=== PATIENT | female | born 1980 | race African-American/Black ===

== ENCOUNTER → 2018-02-09 | Outpatient (CLI) | payer OTHER ==
[~2018-02-09] MED LIST: CHLORPROMAZINE100 MG PO; IBUPROFEN 800800 MG PO; NORTHERA300 MG PO; PRAZOSIN 1 MG CA1 M1 PO; TRAMADOL 50 MG50 MG PO; TRAZODONE HCL100 MG PO; TRILEPTAL150 MG PO
== END | disposition home or self-care (01) ==
LOC: CAT 08:42
DX: I71.03 Dissection of thoracoabdominal aorta (principal); Z90.49 Acquired absence of other specified parts of digestive tract; Z88.8 Allergy status to other drugs, medicaments and biological substances

== ENCOUNTER → 2018-02-18 | Outpatient (CLI) | payer OTHER | LOC: CAT 09:14 | DX: Z53.9 Procedure and treatment not carried out, unspecified reason (principal) ==

== ENCOUNTER 2018-09-04 12:48 | Emergency (ER) | payer OTHER ==
[~2018-09-04] VITALS: Ht 175.3 cm; Wt 90.7 kg
[2018-09-04 14:20] LABS: ABSOLUTE NEUTROPHILS 4.5 thou/uL (1.4-8.2); BASOPHILS 0.5 % (0.0-2.0); EOSINOPHILS 0.9 % (0.0-3.0); HEMATOCRIT 41.7 % (37.0-47.0); HEMOGLOBIN 13.8 gm/dL (12.0-15.0); MCH 29.3 pg (26.0-34.0); MCHC 33.2 g/dL (28.0-37.0); MCV 88.1 fL (80.0-100.0); MONOCYTES 6.9 % (1.0-8.0); PLATELET COUNT 183 thou/uL (150-400); POLYS 67.7 % (36.0-66.0); RBC 4.73 mil/uL (4.20-5.00); RDW 13.8 % (10.5-14.5); WBC 6.6 thou/uL (4.0-11.0)
[2018-09-04 14:35] LABS: CALCIUM 9.4 mg/dL (8.5-10.1); CREATININE 0.9 mg/dL (0.6-1.0); POTASSIUM 3.4 mmol/L (3.5-5.1)
[2018-09-04 14:42] LABS: TOTAL BILIRUBIN 0.5 mg/dL (<0.1-1.0); TOTAL PROTEIN 7.8 g/dL (6.4-8.2)
[2018-09-04] MEDS ORDERED: NORCO 5-325 TA1 EAC1 PO (14:45)
[2018-09-04] MEDS ORDERED: PRILOSEC OTC20 MG PO (14:45)
[2018-09-04] MEDS ORDERED: ONDANSETRON ODT8 MG PO (14:45)
[2018-09-04 16:20] LABS: URINE BILIRUBIN NEGATIVE (Negative); URINE BLOOD TRACE (Negative); URINE CLARITY SL CLOUDY; URINE COLOR YELLOW; URINE GLUCOSE-RANDOM* NEGATIVE (Negative); URINE KETONES NEGATIVE (Negative); URINE LEUKOCYTES-REFLEX NEGATIVE (Negative); URINE NITRITE-REFLEX NEGATIVE (Negative); URINE PROTEIN (DIPSTICK) TRACE (Negative); URINE UROBILINOGEN 0.2 E.U./dl (0.2-1.0)
[2018-09-04 16:33] VITALS: BP 106/68
== END 2018-09-04 16:34 | disposition home or self-care (01) ==
LOC: ER 12:48
PROVIDERS: Emergency Medicine
DX: R10.11 Right upper quadrant pain (principal); R11.2 Nausea with vomiting, unspecified; Z88.8 Allergy status to other drugs, medicaments and biological substances

== ENCOUNTER 2018-11-23 10:23 | Emergency (ER) | payer OTHER ==
[~2018-11-23] VITALS: Ht 154.9 cm; Wt 87.5 kg
[~2018-11-23 10:23] MED LIST changes: +NORCO 5-325 TA1 EAC1 PO; +ONDANSETRON ODT8 MG PO; +PRILOSEC OTC20 MG PO
[2018-11-23] MEDS ORDERED: BRINTELLIX10 MG PO ×2 (10:35)
[2018-11-23] MEDS ORDERED: NEURONTIN600 MG PO (10:35)
[2018-11-23] MEDS ORDERED: AMITRIPTYLINE H10 M3 PO (10:35)
[2018-11-23 11:55] LABS: ABSOLUTE NEUTROPHILS 3.4 thou/uL (1.4-8.2); HEMATOCRIT 35.6 % (37.0-47.0); HEMOGLOBIN 11.9 gm/dL (12.0-15.0); LYMPHOCYTES 31.6 % (24.0-44.0); MCH 30.1 pg (26.0-34.0); MCHC 33.6 g/dL (28.0-37.0); MCV 89.7 fL (80.0-100.0); MONOCYTES 7.1 % (1.0-8.0); PLATELET COUNT 202 thou/uL (150-400); POLYS 59.3 % (36.0-66.0); RBC 3.97 mil/uL (4.20-5.00); RDW 14.4 % (10.5-14.5); WBC 5.8 thou/uL (4.0-11.0)
[2018-11-23 12:01] LABS: ANION GAP 9 mmol/L (7-16); BUN 10 mg/dL (7-18); CHLORIDE 105 mmol/L (98-107); CO2 26 mmol/L (21-32); CREATININE 0.9 mg/dL (0.6-1.0); GLUCOSE 95 mg/dL (74-106); POTASSIUM 4.6 mmol/L (3.5-5.1); SODIUM 140 mmol/L (136-145)
[2018-11-23 12:11] LABS: ALBUMIN 3.5 g/dL (3.4-5.0); SGOT 21 U/L (15-37); SGPT 13 U/L (30-65); TOTAL BILIRUBIN 0.4 mg/dL (<0.1-1.0); TOTAL PROTEIN 6.7 g/dL (6.4-8.2); TROPONIN-I <0.06 ng/mL (<0.06)
[2018-11-23 14:49] VITALS: BP 98/58
--- NOTE | 2018-11-24 14:06 | EKG ---
[address] [address] ELECTROCARDIOGRAM REPORT Name: MARIE ROGERS Room #: DEP [facility]#: [id number] Admission: 11/23/18 Attend Phys: Discharge: 11/23/18 Date of : 84 Report #: [id number] THIS REPORT FOR: //name// [facility] ED Test Date: 2018-11-23 Test Time: 10:25:31 Pat Name: MARIE ROGERS Department: Room: Gender: F Fitness Floor Attendant: LELO : 1980 Requested By: Obi Madrigal Order Number: [id number] MD: Néstor Stevens Measurements Intervals [place] Rate: 56 P: 59 FL: 159 QRS: -17 QRSD: 109 T: 53 QT: 418 QTc: 404 Interpretive Statements Sinus rhythm Probable left atrial enlargement Borderline left axis deviation RSR' in V1 or V2, probably normal variant No previous ECG available for comparison Electronically Signed On 11-24-2018 14:05:56 CDT by Néstor Stevens [email or web address] <ELECTRONICALLY SIGNED> By: Néstor Steevns MD 11/24/18 1405 1025 1025 Néstor Stevens MD /FLOWER
== END 2018-11-23 15:26 | disposition home or self-care (01) ==
LOC: ER 10:23
PROVIDERS: Emergency Medicine
DX: R07.89 Other chest pain (principal); R51 Headache; Z88.8 Allergy status to other drugs, medicaments and biological substances

== ENCOUNTER → 2018-11-24 | Outpatient (CLI) | payer OTHER ==
[~2018-11-24] MED LIST changes: +AMITRIPTYLINE H10 M3 PO; +BACLOFEN 10MG T10 MG PO; +BREO ELLIPTA 11 EACH INH; +BRINTELLIX10 MG PO; +FLONASE 0.05%50 MCG NARES; +NEURONTIN600 MG PO
== END ==
LOC: CAT 09:54
DX: R07.89 Other chest pain (principal); K44.9 Diaphragmatic hernia without obstruction or gangrene; Z90.49 Acquired absence of other specified parts of digestive tract; D25.2 Subserosal leiomyoma of uterus

== ENCOUNTER 2018-12-16 09:13 | Inpatient (IN) | payer OTHER ==
[~2018-12-16] VITALS: Ht 175.3 cm; Wt 88.5 kg
[~2018-12-16 09:13] MED LIST changes: -BACLOFEN 10MG T10 MG PO; -BREO ELLIPTA 11 EACH INH; -FLONASE 0.05%50 MCG NARES
[2018-12-16 09:17] VITALS: BP 109/69
[2018-12-16] MEDS ORDERED: BRINTELLIX10 MG PO (09:38)
[2018-12-16] MEDS ORDERED: BREO ELLIPTA 11 EACH INH (09:39)
[2018-12-16] MEDS ORDERED: FLONASE 0.05%50 MCG NARES (09:40)
[2018-12-16 12:09] LABS: ABSOLUTE NEUTROPHILS 4.7 thou/uL (1.4-8.2); BASOPHILS 0.4 % (0.0-2.0); EOSINOPHILS 0.8 % (0.0-3.0); HEMATOCRIT 37.7 % (37.0-47.0); HEMOGLOBIN 12.5 gm/dL (12.0-15.0); LYMPHOCYTES 25.6 % (24.0-44.0); MCH 30.1 pg (26.0-34.0); MCHC 33.1 g/dL (28.0-37.0); MCV 90.9 fL (80.0-100.0); MONOCYTES 5.5 % (1.0-8.0); PLATELET COUNT 180 thou/uL (150-400); POLYS 67.7 % (36.0-66.0); RBC 4.15 mil/uL (4.20-5.00); WBC 6.9 thou/uL (4.0-11.0)
[2018-12-16 12:19] LABS: ANION GAP 9 mmol/L (7-16); BUN 10 mg/dL (7-18); CHLORIDE 106 mmol/L (98-107); CO2 24 mmol/L (21-32); CREATININE 0.9 mg/dL (0.6-1.0); GLUCOSE 94 mg/dL (74-106); POTASSIUM 3.8 mmol/L (3.5-5.1); SODIUM 139 mmol/L (136-145)
[2018-12-16 12:28] LABS: ALBUMIN 3.8 g/dL (3.4-5.0); SGOT 14 U/L (15-37); SGPT 16 U/L (30-65); TOTAL BILIRUBIN 0.3 mg/dL (<0.1-1.0); TOTAL PROTEIN 7.2 g/dL (6.4-8.2); TROPONIN-I <0.06 ng/mL (<0.06)
[2018-12-16 12:44] LABS: LIPASE 2464 U/L (73-393)
[2018-12-16 15:54] LABS: URINE BILIRUBIN NEGATIVE (Negative); URINE BLOOD NEGATIVE (Negative); URINE CLARITY CLEAR; URINE COLOR YELLOW; URINE GLUCOSE-RANDOM* NEGATIVE (Negative); URINE KETONES NEGATIVE (Negative); URINE LEUKOCYTES-REFLEX NEGATIVE (Negative); URINE NITRITE-REFLEX NEGATIVE (Negative); URINE PROTEIN (DIPSTICK) NEGATIVE (Negative); URINE UROBILINOGEN 0.2 E.U./dl (0.2-1.0)
[2018-12-16 16:09] LABS: AMP/METHAMP Negative (Negative); BARBITURATES Negative (Negative); BENZODIAZEPINES Negative (Negative); COCAINE Negative (Negative); METHADONE Negative (Negative); OPIATES POSITIVE (Negative); PCP Negative (Negative)
[2018-12-16 17:30] VITALS: BP 97/52
--- NOTE | 2018-12-16 17:43 | EKG ---
[address] [place] [address] ELECTROCARDIOGRAM REPORT Name: MARIE ROGERS Room #: 170-4 ADM IN M.R.#: [id number] Admission: 12/16/18 Attend Phys: Beck Parker MD Discharge: Date of : 84 Report #: [id number] THIS REPORT FOR: //name// [facility] ED Test Date: 2018-12-16 Test Time: 15:13:47 Pat Name: MARIE ROGERS Department: Room: 170 Gender: F Activities Director Scouting: SHANNEN : 1980 Requested By: Jose R Arzola Order Number: [id number] MD: Willie Reina Measurements Intervals [place] Rate: 54 P: 55 PA: 171 QRS: -14 QRSD: 108 T: 38 QT: 442 QTc: 419 Interpretive Statements Sinus bradycardia Compared to ECG 11/23/2018 10:25:31 No significant changes Electronically Signed On 12-16-2018 17:43:34 CDT by Willie Reina [email or web address] <ELECTRONICALLY SIGNED> By: Willie Reina MD, [facility] 12/16/18 1743 12 12 Willie Reina MD, FAC /EPI
[2018-12-16 18:08] VITALS: BP 89/55
[2018-12-16 19:18] VITALS: BP 104/63
--- NOTE | 2018-12-16 20:03 | NUR ---
Pt admitted on the floor at 1830, pt transferred to bed safely. Admission history and education done. Report given to night time nanny nurse, to continue admission assessment to patient. On clear liquids- RACE CAR MECHANIC gave tea, water and burmese ice to patient- tolerated well. Consult to Dr West called in by US. second shift supervisor nurse to continue admission and monitoring patient.
[2018-12-17 03:31] VITALS: BP 106/71
--- NOTE | 2018-12-17 04:25 | NUR ---
assumed care of pt @1900. pt a&ox4. pt ambulates with standby assist. pt had 2 episodes of vomiting last night. pt is on clear liquid diet. pt wanted her trazodone and gabapentine ordered. pt was able to tolerate trazadone with little sips of water but did not take the gabapentine due to the large size of the pill. pt stated that she needed to take her trazedone inorder to sleep better. pain and nausea is contolled with dilauded and zofran q4hr. NS infusing at 125ml/hr. pt calls for assistance approp. call khan within reach. no s/s of distress. will cont to monitor
[2018-12-17 05:38] LABS: ABSOLUTE NEUTROPHILS 2.2 thou/uL (1.4-8.2); BASOPHILS 0.3 % (0.0-2.0); EOSINOPHILS 1.8 % (0.0-3.0); HEMATOCRIT 35.7 % (37.0-47.0); HEMOGLOBIN 11.6 gm/dL (12.0-15.0); MCH 29.9 pg (26.0-34.0); MCHC 32.6 g/dL (28.0-37.0); MONOCYTES 7.3 % (1.0-8.0); PLATELET COUNT 154 thou/uL (150-400); POLYS 49.6 % (36.0-66.0); RBC 3.88 mil/uL (4.20-5.00); RDW 14.1 % (10.5-14.5); WBC 4.5 thou/uL (4.0-11.0)
[2018-12-17 05:54] LABS: ALBUMIN 3.2 g/dL (3.4-5.0); CALCIUM 8.3 mg/dL (8.5-10.1); CREATININE 0.7 mg/dL (0.6-1.0); POTASSIUM 3.6 mmol/L (3.5-5.1); TOTAL BILIRUBIN 0.3 mg/dL (<0.1-1.0); TOTAL PROTEIN 5.9 g/dL (6.4-8.2)
[2018-12-17 08:26] VITALS: BP 110/66
--- NOTE | 2018-12-17 13:31 | NUR ---
PT ADMITTED RELATED TO PANCREATITIS AAA N/V. CM REVIEWED CHART AND SPOKE WITH CARE TEAM. CM MET WITH PT AT BEDSIDE THIS DAY. PT IS A&O X4.CM ROLE INTRODUCED. PT INDICATED SHE LIVES IN A THIRD FLOOR APARTMENT WITH HER 17YR OLD DTR. PT IN THERE ARE 15 STEPS TO ENTER AND NO STEPS INSIDE. PT INDICATED SHE USED A 4WW WITH A SEAT AT TIME SAND SCREENER. PT INDICATED SHE HAS OTHERWISE BEEN INDEPDENENT WITH ADLS. PT INDICATED NO HH HX BUT THAT SHE HAD DONE OP PT IN THE PAST. PT INDICATED SHE PLANS TO RETURN HOME ONCE MEDICALLY STABLE. CM TO FOLLOW INDICATED WITH DC PLANNING.
[2018-12-17 13:55] VITALS: BP 115/66
[2018-12-17 19:30] VITALS: BP 119/71
--- NOTE | 2018-12-17 21:31 | NUR ---
PT A&OX4, VSS, PAIN IN ABDOMEN. PATIENT GIVEN TRAMADOL AND BENTYL AND ZOFRAN, PATIENT IMMEDIATELY VOMITED BOTH PILLS. PATIENT STATED SHE WAS TOLD SHE WOULD BE PLACED ON ANTIBIOTICS FOR SWOLLEN LEFT INDEX FINGER AND PLACED ON MUSCLE RELAXER BY ER DOCTOR. PATIENT ALSO STATED SHE WANTED IV PAIN MEDICATION. DOCTOR NOTIFIED OF WISHES AND TORADOL ORDERED. PATIENT STATED TORADOL DIDNT WORK. DOCTOR PAGED AND UNABLE TO REACH. INFORMATION PASSED TO ONCOMING NIGHT NURSE. PATIENT IS VERY UNHAPPY AND ASKING FOR A DIFFERENT DOCTOR. NO SIGNS OF DISTRESS. PATIENT HAD LOOSE STOOL TODAY. PATIENT SAID SHE PRICKED HER FINGER, PULLED THE FOREIGN OBJECT OUT AND ITS BEEN SWOLLEN FOR A WEEK. FINGER IS NORMAL COLOR FOR RACE, NO REDNESS, SLIGHT SWELLING, PUNCTURE SITE VISABLE BUT CLOSED. WILL CONTINUE TO MONITOR.
--- NOTE | 2018-12-18 06:36 | NUR ---
progress pt a/o x 4 rating pain to abdomen an 8 to 10 refusing tramadol at start of shift advised that I called nurse practitioner and got an order for 4 mg morphine onetime only gave zofran and morphine and an hour later she agreed to try tramadol, gave with effect pt slept for a few hours after. had 2 episodes of emesis at start of shift clear with no undigested food noted, pt ate a boxed lunch with no difficulties. continue to monitor.
[2018-12-18 08:00] VITALS: BP 113/62
[2018-12-18] MEDS ORDERED: BACLOFEN 10MG T10 MG PO (12:20)
--- NOTE | 2018-12-18 13:47 | NUR ---
Assumed patient care at 0715. Patient has been very "short" with this nurse, yelling "just get out of here!", and, "this is a terrible hospital!" Patient has expressed that she needs something stronger for her pain and that noone is doing anything about it. This nurse has attempted to discuss this matter further with patient to no avail. Patient states "Zevrene was supposed to follow up wth me!", and, "where is she at?!" Patient is threatening to leave. Supervisors have been notified. Will continue to monitor.
[2018-12-18 15:00] VITALS: BP 123/64
[2018-12-18 17:44] VITALS: BP 123/64
== END 2018-12-18 18:31 | disposition home or self-care (01) | DRG 438 ==
LOC: ER 09:13 → 4W 16:37 → EROBS 16:37 → 4W 18:18
PROVIDERS: Emergency Medicine; Nurse Practitioner; ADMIT Hospitalist
DX: K85.90 Acute pancreatitis without necrosis or infection, unspecified (principal); E43 Unspecified severe protein-calorie malnutrition; K62.5 Hemorrhage of anus and rectum; F41.9 Anxiety disorder, unspecified; K52.9 Noninfective gastroenteritis and colitis, unspecified; M43.6 Torticollis; F32.9 Major depressive disorder, single episode, unspecified; R10.9 Unspecified abdominal pain; G89.29 Other chronic pain; F12.10 Cannabis abuse, uncomplicated; Z68.28 Body mass index [BMI] 28.0-28.9, adult; K64.8 Other hemorrhoids; Z88.8 Allergy status to other drugs, medicaments and biological substances; Z79.899 Other long term (current) drug therapy
CPT/HCPCS: 10040

== ENCOUNTER → 2019-01-08 | Outpatient (CLI) | payer OTHER ==
[~2019-01-08] MED LIST changes: +BACLOFEN 10MG T10 MG PO; +BREO ELLIPTA 11 EACH INH; +FLONASE 0.05%50 MCG NARES
--- NOTE | 2019-01-10 19:06 | SLE ---
[facility] [place] [address] POLYSOMNOGRAPHY STUDY Name: MARIE ROGERS Room #: REG [facility]#: [id number] Admission: 01/08/19 Attend Phys: Junito Rivero MD Discharge: Date of : 84 Report #: [id number] THIS REPORT FOR: //name// CC: Junito YOUNG DATE OF SERVICE: 01/08/2019 SLEEP STUDY REFERRING PHYSICIAN: Kathy Hawkins The patient is a 38-year-old who weighs 192 pounds with a BMI of 28.4. The patient's Willard score was 5. The patient underwent diagnostic sleep study performed at [facility]. During the night study, the patient spent 462 minutes in bed and slept for 431 minutes with a normal sleep efficiency of 93%. Sleep latency was 11.1 minutes with a REM latency of 270 minutes. Sleep architecture showed normal stage 1 sleep, increased stage 2 sleep, normal slow wave and reduced REM sleep. During the night of study, the patient had no apneas and 1 hypopnea with an apnea-hypopnea index of only 0.1 per hour. The patient did not have any significant respiratory events during REM sleep. The patient's supine AHI was 0.3 per hour. EKG monitoring revealed an average heart rate of 65 beats per minute. No sustained arrhythmias observed. PLMs were seen at an index of 16 per hour with only 2 per hour caused EEG arousals. Nocturnal oximetry study revealed an average oxygen saturation of 96% with lowest of 78%, which probably is an artifact. Only 3 minutes were spent in oxygen saturation of less than 89%. Due to low AHI, the patient did not meet the criteria for CPAP initiation. IMPRESSION: 1. No clinically significant sleep disordered breathing. The patient's apnea-hypopnea index for the entire night was 0.1 per hour. 2. No clinically significant nocturnal hypoxia. 3. Mild periodic limb movements. RECOMMENDATIONS: [facility] [address] [place] [address] POLYSOMNOGRAPHY STUDY Name: MARIE ROGERS Room #: REG [facility]#: [id number] Admission: 01/08/19 Attend Phys: Junito Rivero MD Discharge: Date of : 84 Report #: [id number] 1. The patient did not meet the split night criteria for CPAP initiation. 2. Weight loss to the ideal body weight is recommended. 3. Avoid [employer] depressants. 4. PLMs does not need to be treated unless the patient has symptoms of restless legs during the day. <ELECTRONICALLY SIGNED> By: Junito Rivero MD 01/10/19 1906 1247 1302 Junito Rivero MD /nt
== END ==
LOC: SLEEPLAB 09:36
DX: R55 Syncope and collapse (principal); R41.82 Altered mental status, unspecified

== ENCOUNTER → 2019-03-30 | Day surgery (SDC) | payer OTHER ==
[~2019-03-30] VITALS: Ht 175.3 cm; Wt 83.9 kg
--- NOTE | ~2019-03-30 | O ---
[address] [address] OPERATIVE REPORT Name: MARIE ROGERS Room #: REG [facility].#: [id number] Admission: 03/30/19 Attend Phys: Car Harvey MD Discharge: Date of : 84 Report #: [id number] THIS REPORT FOR: cc: Kathy Hawkins DNP, Mary E. DNP McCabe, Michael P. MD ~ THIS REPORT FOR: //name// CC: Kathy Harvey DATE OF SERVICE: 03/30/2019 SERVICE: Orthopedics. FACILITY: [place]. SURGEON: Car Harvey M.D. PROMOTION MANAGER: Crystal Conroy NP INDICATION FOR PROMOTION MANAGER: Extremity positioning, suture management, arthroscope management, assistance with repair. PREOPERATIVE DIAGNOSES: 1. Left hip pain. 2. Left hip combined type femoroacetabular impingement. 3. Left hip acetabular labral tear. POSTOPERATIVE DIAGNOSES: 1. Left hip pain. 2. Left hip combined type femoroacetabular impingement. 3. Left hip acetabular labral tear. 4. 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 PROCEDURES: 1. Left hip arthroscopic labral repair. 2. Left hip arthroscopic Cam osteochondroplasty. 3. Left hip arthroscopic subspine and anterior rim acetabuloplasty. 4. Left hip arthroscopic chondroplasty. COMPLICATIONS: None. DRAINS: None. SPECIMENS: None. [address] [address] OPERATIVE REPORT Name: MARIE ROGERS Room #: REG [facility]#: [id number] Admission: 03/30/19 Attend Phys: Car Harvey MD Discharge: Date of : 84 Report #: [id number] FINDINGS: 1. [place] CinchLock suture anchor x 2 for labral repair. 2. Significant chondral labral damage on the acetabular side with grade 3 fraying, treated with chondroplasty. 3. Focal anterior rim over coverage, treated with a focal rim resection and subspine decompression. 4. Grade 4 chondromalacia at the anterior lateral femoral head adjacent to the acetabular articular cartilage pathology. 5. Capsular repair with #2 Vicryl x 3. HISTORY: The patient is a 38-year-old female with a history of progressive persistent left hip pain for at least 7 years that has been treated conservatively for extended periods of time with rest, activity modifications, physical therapy, intra-articular injections, oral medicines and modalities. All these were insufficient. She had progressive hip pain and wished to undergo definitive surgical treatment. She had an alpha angle consistent with hip impingement, (alpha angle greater than 50 degrees) and an acetabular labral tear. She had a crossover sign as well. Risks, benefits, alternatives and indication of surgery discussed with her in detail. Risks include but not limited to pain, bleeding, infection, injury to nerves or blood vessels, persistent pain despite surgical intervention, failure of any repairs, progression of preexisting chondral injury, stiffness, need for further surgery as well as complications related to anesthesia such as stroke, heart attack, pulmonary complications, thromboembolic disease and . Despite these risks, she wished to proceed. PROCEDURE IN DETAIL: After left lower extremity was correctly identified in preoperative holding as operative extremity, the patient underwent placement of single shot regional nerve block. She was then taken to the operating room where general anesthesia was induced without complication. She was padded appropriately. Prophylactic antibiotics were administered at appropriate time. Feet were placed in traction boots bilaterally. C-arm was used to assess the extent of the cam deformity. She had a maximal alpha angle of approximately 60 degrees. Left hip was then prepped and draped in standard sterile fashion. Time-out procedure was performed. Traction was applied to the left leg. C-arm was used to establish access to the left hip. Upon placement of the scope into the hip, there was noted to be a significant amount of fluid and bleeding, placed a 14-gauge spinal needle into the hip and then aspirated approximately 4 mL of very thick synovial fluid with small blood clot from the distraction. Scope was placed back into the hip and then the anteromedial portal was established and at this point I could visualize the extent of the damage. There was significant amount of fraying of the labrum and the acetabular articular cartilage and then there was an area more anterolaterally where the grade 4 femoral head lesion was located. There was [facility] [address] [place] [address] OPERATIVE REPORT Name: MARIE ROGERS EVIE Room #: REG [facility].#: [id number] Admission: 03/30/19 Attend Phys: Car Harvey MD Discharge: Date of : 84 Report #: [id number] significant friability in the capsule and erythema and inflammation present. Cautery was used to control bleeding of the capsulitis. The indication for the CPM usage postoperatively in order to minimize adhesions and scarring as these can be reasons for reoperation in this patient population, and I would like to minimize any adhesions and scarring, especially in the context of her articular cartilage injury as we will want to minimize the onset and progression of any stiffness that she experiences and capsular contracture. Capsule was reflected off the dorsal side of the labrum exposing a prominent subspine pincer lesion, which was recessed with the bur and then the labrum was gently dissected off the acetabular rim and the rim over coverage anteriorly was addressed with the bur as well, providing a fresh surface for labral refixation and then we performed the repair with [place] suture anchor x 2, which provided good compression of the labrum against the acetabular rim. The shaver was then used to perform chondroplasty to a stable parameter. There were no grade 4 lesions on the acetabulum noted. The scope was then placed anteriorly, working portal laterally. We probed the labrum and articular cartilage laterally as well and this was stable. There was again grade 3 chondral damage more laterally and there was an area where there was a nearly full thickness, but I did not see any exposed subchondral bone as opposed to the femoral head where there was subchondral bone exposed and a limited chondroplasty was performed here. Hip was then flexed up. Attention was turned towards peripheral compartment. The Cam deformity was visualized and could be accessed through the transverse capsulotomy without extending in a T fashion so we then performed the Cam osteoplasty in typical fashion, removed the instruments, brought C-arm in, assessed the resection. I was happy with the resection and therefore we placed the instruments back in the hip, lavaged the bony debris out of the hip and then proceeded with capsular repair. Three #2 Vicryl sutures were used for the repair and instruments were removed. Portal sites were closed. Sterile dressing was applied. The patient was awakened from anesthesia and taken to recovery room in stable condition. No complications. All counts were recorded as correct. By: 1812 1906 Car Harvey MD /cain
== END | disposition home or self-care (01) ==
LOC: OR 12:37
DX: M25.552 Pain in left hip (principal); S73.192A Other sprain of left hip, initial encounter; M25.852 Other specified joint disorders, left hip; M94.252 Chondromalacia, left hip; Z98.890 Other specified postprocedural states; Z79.899 Other long term (current) drug therapy; Z88.8 Allergy status to other drugs, medicaments and biological substances; X58.XXXA Exposure to other specified factors, initial encounter; Y93.89 Activity, other specified; Y92.89 Other specified places as the place of occurrence of the external cause; Y99.8 Other external cause status
CPT/HCPCS: 50010; 50101; 50386; 51538; 52304; 52313; 55430; 56524; 56527; 57092; 57103; 62110; 62900; 64039; 70005

== ENCOUNTER → 2020-02-10 | Outpatient (CLI) | payer OTHER | LOC: SJCVC 10:09 | PROVIDERS: ATTEND Internal Medicine | DX: Z01.812 Encounter for preprocedural laboratory examination (principal); Z01.810 Encounter for preprocedural cardiovascular examination; I95.1 Orthostatic hypotension; I71.00 Dissection of unspecified site of aorta; E78.5 Hyperlipidemia, unspecified; E55.9 Vitamin D deficiency, unspecified; Z79.899 Other long term (current) drug therapy ==

== ENCOUNTER → 2020-02-23 | Outpatient (CLI) | payer OTHER ==
[2020-02-23 10:17] LABS: CREATININE 1.1 mg/dL (0.6-1.0); POTASSIUM 4.1 mmol/L (3.5-5.1)
== END ==
LOC: CAT 02-16 15:32
PROVIDERS: ATTEND Internal Medicine
DX: Z01.812 Encounter for preprocedural laboratory examination (principal); I71.00 Dissection of unspecified site of aorta

== ENCOUNTER 2020-03-07 12:33 | Emergency (ER) | payer OTHER ==
[~2020-03-07] VITALS: Ht 175.3 cm; Wt 86.2 kg
[2020-03-07] MEDS ORDERED: HYDROXYZINE HCL50 MG PO (12:45)
[2020-03-07] MEDS ORDERED: CYCLOBENZAPRINE10 MG PO (12:45)
[2020-03-07] MEDS ORDERED: PRAZOSIN HCL2 MG PO (12:45)
[2020-03-07] MEDS ORDERED: MOBIC7.5 MG PO (14:10)
--- NOTE | 2020-03-07 14:23 | EKG ---
[place] [address] [employer] [address] ELECTROCARDIOGRAM REPORT Name: MARIE ROGERS Room #: REG [facility]#: [id number] Admission: 03/07/20 Attend Phys: Discharge: Date of : 84 Report #: [id number] [facility] ED Test Date: 2020-03-07 Test Time: 12:58:20 Pat Name: MARIE ROGERS Department: Room: Gender: F Learning Disabled Teacher: AJ : 1980 Requested By: Michael Hurst Order Number: [id number] MD: Umang Ram Measurements Intervals [place] Rate: 66 P: 66 SC: 176 QRS: -4 QRSD: 111 T: 65 QT: 394 QTc: 413 Interpretive Statements Sinus rhythm RSR' in V1 or V2, right VCD or RVH Compared to ECG 12/16/2018 15:13:47 Right ventricular hypertrophy now present RSR' in V1 or V2 now present Sinus bradycardia no longer present Electronically Signed On 03-07-2020 14:23:42 WHAR[employer] by Umang Ram [email or web address] <ELECTRONICALLY SIGNED> By: Umang Ram MD, [facility] 03/07/20 1423 1258 1258 Umang Ram MD, [facility] /EPI
[2020-03-07 14:28] VITALS: BP 111/54
== END 2020-03-07 14:29 | disposition home or self-care (01) ==
LOC: ER 12:33
DX: S93.492A Sprain of other ligament of left ankle, initial encounter (principal); M79.672 Pain in left foot; R55 Syncope and collapse; Z88.8 Allergy status to other drugs, medicaments and biological substances; Z79.899 Other long term (current) drug therapy; X50.1XXA Overexertion from prolonged static or awkward postures, initial encounter; Y93.01 Activity, walking, marching and hiking; Y92.89 Other specified places as the place of occurrence of the external cause; Y99.9 Unspecified external cause status

== ENCOUNTER 2020-06-21 09:29 | Emergency (ER) | payer OTHER ==
[~2020-06-21] VITALS: Ht 175.3 cm; Wt 90.7 kg
[~2020-06-21 09:29] MED LIST changes: +CYCLOBENZAPRINE10 MG PO; +HYDROXYZINE HCL50 MG PO; +MOBIC7.5 MG PO; +PRAZOSIN HCL2 MG PO
[2020-06-21] MEDS ORDERED: HYDROCODON-ACE1 EAC7 PO (10:16)
[2020-06-21] MEDS ORDERED: QUETIAPINE FUM100 MG PO (10:16)
[2020-06-21 10:30] LABS: URINE BLOOD TRACE (Negative); URINE CLARITY SL CLOUDY; URINE COLOR YELLOW; URINE GLUCOSE-RANDOM* NEGATIVE (Negative); URINE KETONES NEGATIVE (Negative); URINE LEUKOCYTES-REFLEX NEGATIVE (Negative); URINE NITRITE-REFLEX NEGATIVE (Negative); URINE PROTEIN (DIPSTICK) 2+ (Negative); URINE SPECIFIC GRAVITY >= 1.030 (1.005-1.035); URINE UROBILINOGEN 0.2 E.U./dl (0.2-1.0)
[2020-06-21 10:33] LABS: ICTOTEST (BILI CONFIRMATORY) Negative (Negative); URINE BILIRUBIN NEGATIVE (Negative)
[2020-06-21 10:37] LABS: ABSOLUTE NEUTROPHILS 11.2 thou/uL (1.4-8.2); BASOPHILS 0.3 % (0.0-2.0); HEMATOCRIT 38.5 % (37.0-47.0); HEMOGLOBIN 12.9 gm/dL (12.0-15.0); MCH 30.7 pg (26.0-34.0); MCHC 33.5 g/dL (28.0-37.0); MCV 91.9 fL (80.0-100.0); MONOCYTES 4.2 % (1.0-8.0); PLATELET COUNT 234 thou/uL (150-400); POLYS 89.5 % (36.0-66.0); RBC 4.19 mil/uL (4.20-5.00); RDW 12.8 % (10.5-14.5); WBC 12.5 thou/uL (4.0-11.0)
[2020-06-21 10:44] LABS: CREATININE 1.2 mg/dL (0.6-1.0); POTASSIUM 3.4 mmol/L (3.5-5.1)
[2020-06-21 10:48] LABS: CASTS None Seen /LPF (None Seen); CRYSTALS None Seen /LPF (None Seen); MUCUS >6 Heavy strn/LPF (None Seen); SQUAMOUS 0-3 Few /LPF (0-3)
[2020-06-21 10:50] LABS: ALBUMIN 4.2 g/dL (3.4-5.0); TOTAL BILIRUBIN 0.5 mg/dL (0.2-1.0); TOTAL PROTEIN 8.2 g/dL (6.4-8.2)
[2020-06-21 10:51] LABS: BACTERIA-REFLEX 1-9 Few /HPF (None Seen); URINE RBC 1-2 Rare /HPF (NONE SEEN); URINE WBC-REFLEX 0-5 Rare /HPF (0-5)
[2020-06-21] MEDS ORDERED: FLAGYL500 M1 PO (12:39)
[2020-06-21] MEDS ORDERED: ZOFRAN ODT4 MG PO (12:39)
[2020-06-21] MEDS ORDERED: CIPROFLOXACIN500 M1 PO (12:39)
[2020-06-21 13:21] VITALS: BP 113/64
== END 2020-06-21 13:21 | disposition home or self-care (01) ==
LOC: ER 09:29
PROVIDERS: Emergency Medicine
DX: K52.9 Noninfective gastroenteritis and colitis, unspecified (principal); R10.84 Generalized abdominal pain; I10 Essential (primary) hypertension; Z88.8 Allergy status to other drugs, medicaments and biological substances; Z79.899 Other long term (current) drug therapy

== ENCOUNTER → 2020-07-07 | Day surgery (SDC) | payer OTHER ==
[~2020-07-07] MED LIST changes: +CIPROFLOXACIN500 M1 PO; +FLAGYL500 M1 PO; +HYDROCODON-ACE1 EAC7 PO; -NEURONTIN600 MG PO; +NEURONTIN800 MG PO; +PERCOCET 7.5-31 EAC1 PO; +PROTONIX 20 MG20 MG PO; +QUETIAPINE FUM100 MG PO; +VITAMIN D250 MC1 PO; +ZOFRAN ODT4 MG PO
--- NOTE | ~2020-07-07 | O ---
[facility] [place] [address] OPERATIVE REPORT Name: MARIE ROGERS Room #: REG [facility].#: [id number] Admission: 07/07/20 Attend Phys: Filiberto Galicia MD Discharge: Date of : 84 Report #: [id number] THIS REPORT FOR: cc: Kathy Hawkins DNP, Mary E. DNP Kneidel, Matthew T. MD ~ DOC #: [id number] Filiberto Galicia MD DATE OF SERVICE: 07/07/2020 PREOPERATIVE DIAGNOSES: 1. Left hallux valgus. 2. 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 POSTOPERATIVE DIAGNOSES: 1. Left hallux valgus. 2. 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 PROCEDURES: 1. Left foot Chevron osteotomy. 2. Left foot 2-3 and 3-4 Bear's neuroma excision. SURGEON: Filiberto Galicia MD VULCANIZER OPERATOR: Carley Mcdonald PA-C. TYPE OF ANESTHESIA: General. ESTIMATED BLOOD LOSS: Minimal. DRAINS: None. TOURNIQUET TIME: One hour. DESCRIPTION OF PROCEDURE: The patient was brought to the Operating Room where she was placed under general anesthesia. Once under adequate general anesthesia, her left lower extremity was prepped and draped in a sterile manner. The extremity was elevated, exsanguinated, and tourniquet placed to 300 mmHg. A medial incision over the first metatarsophalangeal joint was made. This was dissected down through the soft tissue to the joint capsule, which was then incised exposing the medial eminence. The medial eminence was resected with a sagittal saw and subsequently a Chevron-type osteotomy was performed utilizing the sagittal saw, translating the capital fragment 1 cm laterally. Fixation was then achieved with a single 3.0 cannulated screw placed under fluoroscopic guidance. The medial overhang was then resected from the metatarsal. The osteotomy was then very well aligned as verified under fluoroscopy. [address] [address] OPERATIVE REPORT Name: MARIE ROGERS Room #: REG [facility]..#: [id number] Admission: 07/07/20 Attend Phys: Filiberto Galicia MD Discharge: Date of : 84 Report #: [id number] fixation was achieved. This wound was then irrigated copiously. Capsular layer was repaired with a 2-0 Ethibond suture and then we proceeded to the neuromas. At the 2-3 and 3-4 webspace, dorsal incisions were made. Dissection in each of these was carried down to the intermetatarsal ligament, which was then incised. A lamina professor of chemistry was placed between the metatarsals and subsequently exposure of the neuromas was achieved. These were then identified proximally in the foot and followed distally, dissected free from the surrounding soft tissues including each limb of the nerve to the 2nd and 3rd and 3rd and 4th toes. Once complete, these neuromas were then completely excised, the wounds were irrigated copiously and closed with 3-0 Vicryl in subcutaneous tissues and 3-0 nylon for the skin. The wounds were dressed with Xeroform, 4 x 4's, and sterile soft compressive dressing was placed. Tourniquet was let down at approximately 1 hour. Toes were pink and warm. Good capillary refill. There were no complications from the procedure. The patient tolerated the procedure well and went to the Recovery Room without incident. MD CONY Bautista/Sher By: [id number] Filiberto Galicia MD /nt
--- NOTE | 2020-07-10 18:06 | PATH ---
[facility] [address] [address] [place] [address] PATHOLOGY RPT PROCEDURE Name: MARIE ROGERS EVIE Room #: REG [facility] M.R.#: [id number] Admission: 07/07/20 Date of : 84 Discharge: Report #: [id number] Path Case #: [id number] [facility] Accession Number: [id number] . 01 Material submitted: . PART A: foot - LEFT FOOT MORTONS NEUROMA 2-3. Modifiers: left PART B: foot - LEFT FOOT MORTONS NEUROMA 3-4. Modifiers: left . 01 Clinical history: . BUNIONECTOMY,OSTEOTOMY,SCREW FIXATION . MORTONS NEUROMA OF LEFT FOOT, HALLUX VALGUS . 02 Diagnosis: A. Left foot Bear's neuroma 2-3, excision: - Compatible with a neuroma. - Fragments of fibroadipose tissue with reactive changes. . B. Left foot Bear's neuroma 3-4, excision: - Compatible with a neuroma. - Fragments of fibroadipose tissue with reactive changes. . (IUV:mml; 07/10/2020) QLM 07/10/2020 1549 Local . 02 Electronically signed: . Lynne Strong MD, Pathologist NPI- [id number] . 01 Gross description: . A. Received in formalin labeled "Paloma Rogers, left foot Bear's neuroma 2-3" is a fragment of johnson-yellow soft tissue measuring 3.1 x 1.2 x 0.9 cm. Specimen is serially sectioned to reveal lobular, johnson-yellow cut surface. The specimen is submitted entirely in A1. . B. Received in formalin labeled "Paloma Rogers left foot Bear's neuroma 3-4" is a fragment of johnson-yellow soft tissue measuring 2.4 x 1.2 x 0.6 cm. Specimen is serially sectioned to reveal lobular johnson yellow cut surface. The specimen is submitted entirely in B1. ([facility]; 07/08/2020) GZA/GZA 07/08/2020 1135 Local . 02 Pathologist provided ICD-10: G57.62 . 02 CPT . 493085, 258189 Specimen Comment: A courtesy copy of this report has been sent to [phone], [place] [address] PATHOLOGY RPT PROCEDURE Name: MARIE ROGERS EVIE Room #: REG [facility]..#: [id number] Admission: 07/07/20 Date of : 84 Discharge: Report #: [id number] Path Case #: [id number] Specimen Comment: [id number] Specimen Comment: Report sent to / DR RIVERA Performed at: [address] [facility] [address], [place], [place] [id number] MD Aramis Lucero MD Phone: [phone] Performed at: [address] [facility] [id number] MD Lynne Strong MD Phone: [phone]
== END | disposition home or self-care (01) ==
LOC: OR 09:02
PROVIDERS: ATTEND Orthopaedic Surgery Foot and Ankle Surgery
DX: M20.12 Hallux valgus (acquired), left foot (principal); G57.62 Lesion of plantar nerve, left lower limb; Z98.890 Other specified postprocedural states; Z87.19 Personal history of other diseases of the digestive system; Z20.822 Contact with and (suspected) exposure to COVID-19; Z79.899 Other long term (current) drug therapy; Z88.8 Allergy status to other drugs, medicaments and biological substances
CPT/HCPCS: 50101; 50386; 50951; 56524; 56527; 57091; 57180; 58774; 62110; 62900; 70005

== ENCOUNTER 2020-08-04 07:59 | Inpatient (IN) | payer OTHER ==
[~2020-08-04] VITALS: Ht 175.3 cm; Wt 90.7 kg
[2020-08-04 08:03] VITALS: BP 106/70
[2020-08-04 09:06] LABS: ABSOLUTE NEUTROPHILS 11.4 thou/uL (1.4-8.2); BASOPHILS 0.3 % (0.0-2.0); HEMATOCRIT 36.5 % (37.0-47.0); HEMOGLOBIN 12.1 gm/dL (12.0-15.0); LYMPHOCYTES 7.1 % (24.0-44.0); MCH 29.8 pg (26.0-34.0); MCHC 33.2 g/dL (28.0-37.0); MCV 89.5 fL (80.0-100.0); MONOCYTES 2.6 % (1.0-8.0); PLATELET COUNT 217 thou/uL (150-400); RBC 4.07 mil/uL (4.20-5.00); WBC 12.7 thou/uL (4.0-11.0)
[2020-08-04 09:07] LABS: URINE BILIRUBIN NEGATIVE (Negative); URINE BLOOD NEGATIVE (Negative); URINE CLARITY CLEAR; URINE COLOR YELLOW; URINE GLUCOSE-RANDOM* NEGATIVE (Negative); URINE KETONES NEGATIVE (Negative); URINE LEUKOCYTES-REFLEX NEGATIVE (Negative); URINE NITRITE-REFLEX NEGATIVE (Negative); URINE PROTEIN (DIPSTICK) TRACE (Negative); URINE SPECIFIC GRAVITY 1.025 (1.005-1.035); URINE UROBILINOGEN 0.2 E.U./dl (0.2-1.0)
[2020-08-04 09:15] LABS: CALCIUM 9.2 mg/dL (8.5-10.1); CREATININE 0.9 mg/dL (0.6-1.0); POTASSIUM 3.6 mmol/L (3.5-5.1)
--- NOTE | 2020-08-04 09:20 | NUR ---
ALEJA RODRIGUEZ [place] [place] [phone]
[2020-08-04 09:22] LABS: ALBUMIN 3.9 g/dL (3.4-5.0); TOTAL BILIRUBIN 0.3 mg/dL (0.2-1.0); TOTAL PROTEIN 7.6 g/dL (6.4-8.2)
[2020-08-04 12:02] VITALS: BP 124/73
[2020-08-04 14:05] VITALS: BP 129/84
--- NOTE | 2020-08-04 18:15 | NUR ---
PT RECEIVED FROM THE ER AT 1320 ALERT AND COMFORTABLE. PT FEELING BETTER WHEN FIRST ON THE UNIT AND ALLOWED TO REST BUT THEN PAIN AND NAUSEA RETURNED. NOTIFIED DR AND OBTAINED MORPNINE ORDER. URINE DRUG SCREEN SENT PER ORDER. TRY SM AMT OF TEA BUT UNABLE TO DRINK. FEELING SOME BETTER.
[2020-08-04 20:06] VITALS: BP 98/62
[2020-08-04 20:12] LABS: AMP/METHAMP Negative (Negative); BARBITURATES Negative (Negative); BENZODIAZEPINES Negative (Negative); COCAINE Negative (Negative); METHADONE Negative (Negative); OPIATES POSITIVE (Negative); PCP Negative (Negative)
--- NOTE | 2020-08-05 00:12 | NUR ---
PT FEELING MUCH BETTER NOW.WAS NAUSEOUSAT HS,CAPSAICIN CREAM APPLIED,PT VOICED RELIEF.MORPHINE AND MORRIS TORADOL GIVEN SO FAR FOR PAIN MGT.CLEAR LIQUIDS OFFERED,PT JANELLE WELL.CAM BOOT TO HER L LEG.PT ABLE TO MAKE HER NEEDS KNOWN.CALL LIGHT WITHIN REACH.
[2020-08-05 05:29] LABS: HEMATOCRIT 34.8 % (37.0-47.0); HEMOGLOBIN 11.5 gm/dL (12.0-15.0); MCHC 33.1 g/dL (28.0-37.0); MCV 90.6 fL (80.0-100.0); RBC 3.84 mil/uL (4.20-5.00); RDW 13.3 % (10.5-14.5); WBC 8.9 thou/uL (4.0-11.0)
[2020-08-05 05:40] LABS: CALCIUM 8.4 mg/dL (8.5-10.1); POTASSIUM 3.3 mmol/L (3.5-5.1)
[2020-08-05 07:23] VITALS: BP 105/64
--- NOTE | 2020-08-05 12:51 | NUR ---
ASSUMED PT CARE AROUND 1000. GOT REPORT FROM BOO RN AT 4S. PT ALERT X ORIENTED X 4. ON ROOM AIR. UP AD ADIEL.IV LEFT EJ WITH NS/ 100MLS/HR. ON CLEAR LIQUID DIET.CAM BOOT TO LEFT LEG. C/O OF PAIN AND NAUSEA. ZOFRAN GIVEN FOR NAUSEA. PAIN PARTIALLY CONTROLLED BY MORPHINE AND KETOROLAC TROMETHAMINE. FALL PRECAUTION IN PLACE. CALL LIGHT IN REACH. WILL CALL APRROPRIATELY. WILL CONTINUE TO MONITOR.
[2020-08-05 16:20] VITALS: BP 120/71
[2020-08-05 20:19] VITALS: BP 117/66
--- NOTE | 2020-08-06 02:37 | NUR ---
PT AMBULATING TO BATHROOM WITH STANDBY ASSIST AND IS TOLERATING WELL. MORPHINE PROVIDING PAIN RELIEF. ZOFRAN NAUSEA RELIEF. RESTING COMFORTABLY. NO NEEDS VOICED. CALL LIGHT WITHIN REACH. FREQUENT OBSERVATION.
[2020-08-06 08:10] VITALS: BP 136/58
--- NOTE | 2020-08-06 09:14 | NUR ---
ASSUMED PT CARE THIS AM. PT IS ALERT & ORIENTED X4. PT HAS IV SITE ON L EJ RUNNING NS @ 100ML/HR. PT IS UP WITH ASSIST X1. PT C/O OF NAUSEA THIS AM AND GIVEN NAUSEA MEDICATION PER PT REQUEST AND NO VOMITING NOTED. PT IS ON ROOM AIR. PT HAS CAM BOOT ON L LE. PT RATED PAIN 3/10 ON ABDOMEN. PT ON THE BED, BED ON THE LOWEST POSITION, SIDE RAILS UP, CALL LIGHT WITHIN REACH. WILL CONTUNUE TO MONITOR PT. FOLLOW POC.
[2020-08-06] MEDS ORDERED: AF CAPSICUM 0.060 GM TOP (09:43)
[2020-08-06 12:18] VITALS: BP 136/58
== END 2020-08-06 13:48 | disposition home or self-care (01) | DRG 641 ==
LOC: ER 07:59 → EROBS 13:00 → 4S 13:01
PROVIDERS: Emergency Medicine; ADMIT Hospitalist; ATTEND Hospitalist
DX: E86.0 Dehydration (principal); R11.2 Nausea with vomiting, unspecified; K21.9 Gastro-esophageal reflux disease without esophagitis; F32.9 Major depressive disorder, single episode, unspecified; F41.9 Anxiety disorder, unspecified; F43.10 Post-traumatic stress disorder, unspecified; F12.90 Cannabis use, unspecified, uncomplicated; Z90.49 Acquired absence of other specified parts of digestive tract; Z79.899 Other long term (current) drug therapy; Z88.8 Allergy status to other drugs, medicaments and biological substances
CPT/HCPCS: 10195

== ENCOUNTER 2020-11-23 19:47 | Inpatient (IN) | payer OTHER ==
[~2020-11-23] VITALS: Ht 175.3 cm; Wt 96.6 kg
[~2020-11-23 19:47] MED LIST changes: +AF CAPSICUM 0.060 GM TOP
[2020-11-23 19:53] VITALS: BP 177/69
[2020-11-23] MEDS ORDERED: PAMELOR25 MG PO (19:57)
[2020-11-23 21:00] LABS: HEMATOCRIT 42.5 % (37.0-47.0); HEMOGLOBIN 13.8 gm/dL (12.0-15.0); MCH 29.3 pg (26.0-34.0); MCHC 32.4 g/dL (28.0-37.0); MCV 90.5 fL (80.0-100.0); PLATELET COUNT 313 thou/uL (150-400); RDW 13.8 % (10.5-14.5); WBC 23.5 thou/uL (4.0-11.0)
[2020-11-23 21:07] LABS: CALCIUM 9.5 mg/dL (8.5-10.1); POTASSIUM 3.9 mmol/L (3.5-5.1)
[2020-11-23 21:13] LABS: ALBUMIN 4.6 g/dL (3.4-5.0); TOTAL BILIRUBIN 0.3 mg/dL (0.2-1.0); TOTAL PROTEIN 8.5 g/dL (6.4-8.2)
[2020-11-23 21:43] LABS: PLATELET ESTIMATE NORMAL
[2020-11-24 07:19] VITALS: BP 152/78
[2020-11-24 07:20] VITALS: BP 152/78
[2020-11-24 15:57] VITALS: BP 116/74
--- NOTE | 2020-11-24 17:49 | NUR ---
TODAY THIS PT HAS HAD SOME STATED PAIN IN WHICH SHE WAS MEDICATED. SHE HAS BEEN ASLEEP FOR MOST OF THE DAY AND USING THE BATHROOM WHEN NEEDED. SHE HAS HAD STABLE VS AND HAS BEEN TOLERATING HER ANTIBIOTICS WELL.
[2020-11-24 19:55] VITALS: BP 113/72
[2020-11-25 04:25] LABS: CALCIUM 8.2 mg/dL (8.5-10.1); CREATININE 0.8 mg/dL (0.6-1.0); MAGNESIUM 2.3 mg/dL (1.8-2.4); POTASSIUM 3.4 mmol/L (3.5-5.1)
[2020-11-25 04:31] LABS: ABSOLUTE NEUTROPHILS 4.5 thou/uL (1.4-8.2); BASOPHILS 0.4 % (0.0-2.0); EOSINOPHILS 0.4 % (0.0-3.0); LYMPHOCYTES 30.8 % (24.0-44.0); MCH 30.1 pg (26.0-34.0); MCHC 33.3 g/dL (28.0-37.0); MCV 90.3 fL (80.0-100.0); MONOCYTES 8.1 % (1.0-8.0); POLYS 60.3 % (36.0-66.0); RBC 3.99 mil/uL (4.20-5.00); RDW 13.5 % (10.5-14.5)
[2020-11-25 04:33] LABS: PLATELET COUNT 216 thou/uL (150-400); WBC 7.6 thou/uL (4.0-11.0)
--- NOTE | 2020-11-25 04:53 | NUR ---
ASSUMED CARE OF PT AT 1900. BEDSIDE REPORT RECIEVED. SHANI ASSESSMENT COMPLETED. PT UP AD ADIEL. C/O ABDOMINAL PAIN, PRN TYLENOL GIVEN C SMALL SIPS OF WATER, REST OF MEDS ADMINISTERED WELL C SMALL SIPS OF WATER. PT REPORTS UNCONTROLLED PAIN DESPITE TYLENOL, SUGGESTED HEATING PAD PT DENIED. PROVIDED EDUCATION ON PTS NPO STATUS, VERBALIZED UNDERSTANDING. CONTINUOUS IVF RUNNING. SAMPLE HAS YET TO BE COLLECTED D/T PT NOT HAVING BM YET. NO EMESIS DURING THIS SHIFT, JUST C/O ABDOMINAL PAIN AND DISCOMFORT. ALL NEEDS MET, CALL LIGHT IN REACH.
--- NOTE | 2020-11-25 12:11 | NUR ---
ASSUMED CARE OF PT AT 0700 THIS MORNING. PT IS C/O ABD PAIN WITH NO RELIEF FROM THE TYLENOL. RT HAND IV HAS INFILTRATED. IV TEAM PLACED NEW IV IN LT FA. DR. WEI STATED HE WOULD ADD ORDERS FOR LIQUID DIET AND MORPHINE FOR PAIN. ORDERS HAVE NOT BEEN RECEIVED OF YET. ASSESSMENTS NOTED IN CHART AND OTHERWISE UNREMARKABLE. PT IS INDEP AMBULATION. MEDS AND TX GIVEN NEEDED AND SCHEDULED. WILL MONITOR AND NOTE ANY CHANGES.
[2020-11-25 16:57] VITALS: BP 134/73
[2020-11-25 18:13] LABS: AMP/METHAMP Negative (Negative); BARBITURATES Negative (Negative); BENZODIAZEPINES POSITIVE (Negative); COCAINE Negative (Negative); METHADONE Negative (Negative); OPIATES POSITIVE (Negative)
[2020-11-25 19:57] VITALS: BP 101/69
[2020-11-25 20:13] LABS: URINE BILIRUBIN NEGATIVE (Negative); URINE BLOOD NEGATIVE (Negative); URINE CLARITY CLEAR; URINE COLOR YELLOW; URINE GLUCOSE-RANDOM* NEGATIVE (Negative); URINE KETONES NEGATIVE (Negative); URINE LEUKOCYTES-REFLEX NEGATIVE (Negative); URINE NITRITE-REFLEX NEGATIVE (Negative); URINE PROTEIN (DIPSTICK) NEGATIVE (Negative); URINE SPECIFIC GRAVITY >= 1.030 (1.005-1.035); URINE UROBILINOGEN 0.2 E.U./dl (0.2-1.0)
[2020-11-25 22:44] LABS: PCP POSITIVE (Negative)
[2020-11-26 04:19] VITALS: BP 99/60
--- NOTE | 2020-11-26 04:58 | NUR ---
ASSUMED CARE OF PT AT 1900. BEDSIDE REPORT RECIEVED. SHANI ASSESSMENT COMPLETE. PT HAVE EMESIS C ANY PO INTAKE. UNABLE TO KEEP ANYTHING DONE. HAVING CONSTANT LOOSE STOOLS. ABDOMINAL PAIN. CRITICAL CALLED AND THIS NURSE NOTIFIED YOUSUF RAMIREZ C IN 20 MIUTES OF RECIEVEING POSITIVE C DIFF RESULTS, ALSO NOTIFIED ABOUT CONTINUING VOMITTING AND MODERATE TO EXCESSIVE AMOUNT OF PAIN. UA RESULTS BACK, WILL PASS ON TO DAY SHIFT NURSE. BROUGHT PT SPRITE TO TRY AND HELP SETTLE STOMACH SINCE ZOFRAN WASNT AVAILABLE. ALL NEEDS MET, WILL CONTINUE TO MONITOR. CALL LIGHT IN REACH
[2020-11-26 07:51] VITALS: BP 100/65
[2020-11-26 14:37] VITALS: BP 125/68
--- NOTE | 2020-11-26 17:39 | NUR ---
VAT CONSULTED FOR PICC PLACEMENT. RIGHT UPPER BASILIC VEIN PICC PLACED, TRIMMED 41/3CM EXTERNAL. TIP LOCATION VERIFIED WITH 3[employer] TECHNOLOGY. PT TOLERATED WELL. ALL LUMENS FLUSH BRISKLY AND RETURN BLOOD. RELEASED LINE FOR USE, PER HOSPITAL VASCULAR ACCESS POLICY.
--- NOTE | 2020-11-26 19:49 | NUR ---
ASSUMED PT CARE THIS AM. PT IS ALERT & ORIENTED X4. PT IS UP AD ADIEL. PT PIV INFILTRATED THIS AM. ORDERED PICC LINE THIS AFTERNOON. PT C/O OF VOMITING AND UNABLE TO TOLERATED PO MEDS AND CLEAR LIQUID DIET. INFORMED DR AND IS AWARE. PT IS ON CONTACT ISOLATION DUE TO POSITIVE C. DIFF. PT IS ON ROOM AIR. INFORMED ABOUT UA RESULTS THIS AM. PT FAMILY WAS AT THE BEDSIDE. PT WILL BE NPO AFTER MIDNIGHT. ENDORSE NIGHT NURSE THAT PT WILL HAVE EGD TOMORROW. WILL CONTINUE TO MONITOR PT. FOLLOW POC.
[2020-11-26 20:35] VITALS: BP 104/73
[2020-11-27 03:37] VITALS: BP 104/70
--- NOTE | 2020-11-27 03:49 | NUR ---
ASSUMED PT CARE AT 1900.PT C/O PAIN TO HER ABD,MANAGED WITH MED.PT NPO.MORRIS REGLAN ADMINISTERED.PT DOWN TO GET CT OF HER ABD.PT UP ADLIB IN HER ROOM.ISOLATION PRECAUTIONS MAINTAINED.CALL LIGHT WITHIN REACH.
[2020-11-27 05:37] LABS: ABSOLUTE NEUTROPHILS 4.2 thou/uL (1.4-8.2); BASOPHILS 0.3 % (0.0-2.0); EOSINOPHILS 2.3 % (0.0-3.0); HEMATOCRIT 33.6 % (37.0-47.0); HEMOGLOBIN 11.3 gm/dL (12.0-15.0); LYMPHOCYTES 17.3 % (24.0-44.0); MCHC 33.7 g/dL (28.0-37.0); MCV 89.2 fL (80.0-100.0); MONOCYTES 9.1 % (1.0-8.0); PLATELET COUNT 194 thou/uL (150-400); RBC 3.77 mil/uL (4.20-5.00); RDW 13.1 % (10.5-14.5); WBC 5.9 thou/uL (4.0-11.0)
[2020-11-27 07:55] VITALS: BP 119/70
[2020-11-27 15:22] VITALS: BP 106/74
--- NOTE | 2020-11-27 15:54 | NUR ---
ASSESSMENT: CM REVIEWED CHART AND SPOKE WITH PATIENT AT THE BEDSIDE. PT APPEARS ALERT AND ORIENTED X4. PT IS IN ISOLATION DUE TO CDIFF. PT REPORTS LIVING IN AN APT WITH HER 17 YEAR OLD DAUGHTER. PT REPORTS THAT HER MOTHER IS ABLE TO HELP HER DAUGHTER WHILE PT IS HOSPITALIZED. PT REPORTS LIVING IN AN APT WITH ABOUT 3 FLIGHTS OF STEPS TO ENTER. PT REPORTS NORMALLY BEING FULLY INDEPENDENT WITH ADLS AND AMBULATION BUT REPORTS SHE DOES HAVE A WALKER AT HOME IF NEEDED. PT REPORTS SHE HAS NOT HAD HH IN THE PAST. PT HAD EGD COMPLETED TODAY AND DIET WILL LIKELY BE ADVANCED. PT DOES NOT ANTICIPATE HAVING ANY NEEDS FROM CM AT THE TIME OF DISCHARGE. CM WILL CONTINUE TO FOLLOW TO assit as needed.
[2020-11-27 20:24] VITALS: BP 108/62
--- NOTE | 2020-11-28 03:13 | NUR ---
ASSUMED PT CARE AT 1900.PT C/O PAIN AND NAUSEA,MANAGED WITH MED.PT UP ADLIB IN HER ROOM TO THE TOILET.PT STATED THAT SHE IS STILL HAVING DIARRHEA,THIS NUSRE DID NOT WITNESS IT.PT STILL ON ISOLATION PREAC.FOR CDIFF.IVF AND IV ABX ORDERED.PT ABLE TO MAKE HER NEEDS KNOWN.CALL LIGHT WITHIN REACH.
[2020-11-28 05:00] VITALS: BP 104/65
[2020-11-28 09:12] VITALS: BP 117/81
--- NOTE | 2020-11-28 10:13 | NUR ---
Assumed care of pt at 0700. Pt a&OX4. Up ad vandana. Denies pain and nausea. IVF and IV antibiotics infusing. Pt states she feels better today and would like to go home. RA. Call light within reach. Will continue to monitor.
[2020-11-28] MEDS ORDERED: ZOFRAN ODT4 MG PO (14:20)
[2020-11-28] MEDS ORDERED: CIPRO500 M1 PO (14:20)
[2020-11-28] MEDS ORDERED: VANCOMYCIN HCL125 MG PO (14:20)
[2020-11-28] MEDS ORDERED: ACETAMINOPHEN325 M1 PO (14:20)
[2020-11-28] MEDS ORDERED: HYDROCODON-ACE1 EAC7 PO (14:20)
[2020-11-28] MEDS ORDERED: HYOSCYAMINE0.125 M1 PO (14:20)
[2020-11-28] MEDS ORDERED: FLAGYL500 M1 PO (14:20)
[2020-11-28] MEDS ORDERED: ACIDOPHILUS1 EAC4 PO (14:20)
[2020-11-28 14:27] VITALS: BP 117/81
--- NOTE | 2020-11-28 14:47 | NUR ---
ON-GOING ASSESSMENT: CM REVIEWED CHART AND SPOKE WITH ATTENDING. PT HAS ORDERS TO DISCHARGE HOME TODAY WITH NO NEEDS FROM CM. CASE CLOSED.
--- NOTE | 2020-11-29 16:06 | PATH ---
[facility] [address] [place] [address] PATHOLOGY RPT PROCEDURE Name: SURAJ ROGERS EVIE Room #: 448-P DIS IN M.R.#: [id number] Admission: 11/23/20 Date of : 84 Discharge: 11/28/20 Report #: [id number] Path Case #: [id number] [facility] Accession Number: [id number] . 01 Material submitted: . PART A: duodenum - DUODENUM BX - R/O CELIAC PART B: ANTRUM - ANTRUM BX - R/O H. PYLORI . 01 Clinical history: . EGD NAUSEA, VOMITING, ABDOMINAL PAIN HIATAL HERNIA, GASTRITIS . 02 Diagnosis: A. Duodenal mucosa, duodenum, biopsy: - Intact normal villous architecture. - No increase in intraepithelial lymphocytes. . B. Gastric mucosa, antrum, biopsy: - Mild inactive chronic gastritis with reactive gastropathy. - H. pylori immunohistochemical stain is negative. (SCA:mima; 11/29/2020) S 11/29/2020 1128 Local . 02 Electronically signed: . Drake Raymundo DO, Pathologist NPI- [id number] . 01 Gross description: . A. The specimen is received in formalin designated "Suraj Rogers, duodenum BX-R/O celiac" and consists of a pale johnson irregular tissue measuring 0.5 x 0.3 x 0.3 cm which is submitted in toto in A1. . B. The specimen is received in formalin designated "Roderick, Suraj, Antrum Bx-R/O H. pylori" and consists of a johnson irregular tissue measuring 0.5 x 0.4 x 0.3 cm which is submitted in toto in B1. ([place]; 11/28/2020) DKA/DKA 11/28/2020 1656 Local . 02 Pathologist provided ICD-10: K29.50, K31.9 . 02 CPT . 561969, 418333, R15378 Specimen Comment: A courtesy copy of this report has been sent to [phone] Specimen Comment: [phone] Specimen Comment: Report sent to , DR RIVERA / [place] [address] PATHOLOGY RPT PROCEDURE Name: SURAJ ROGERS [facility] Room #: 448-P DIS IN M.R.#: [id number] Admission: 11/23/20 Date of : 84 Discharge: 11/28/20 Report #: [id number] Path Case #: [id number] Performed at: 01 [facility] [address] [id number] MD Aramis Lucero MD Phone: [phone] Performed at: 02 [facility] [address] [id number] MD Joaquin Randolph MD Phone: [phone]
== END 2020-11-28 15:00 | disposition home or self-care (01) | DRG 373 ==
LOC: ER 19:47 → 4S 23:35 → EROBS 23:35 → 4S 11-24 07:39
PROVIDERS: Emergency Medicine; Internal Medicine; Nurse Practitioner; ADMIT Hospitalist; ATTEND Hospitalist
DX: A04.72 Enterocolitis due to Clostridium difficile, not specified as recurrent (principal); K29.70 Gastritis, unspecified, without bleeding; F41.9 Anxiety disorder, unspecified; F32.A Depression, unspecified; F43.10 Post-traumatic stress disorder, unspecified; I95.1 Orthostatic hypotension; I71.4 Abdominal aortic aneurysm, without rupture; F12.10 Cannabis abuse, uncomplicated; F11.10 Opioid abuse, uncomplicated; F16.10 Hallucinogen abuse, uncomplicated; F17.200 Nicotine dependence, unspecified, uncomplicated; F13.10 Sedative, hypnotic or anxiolytic abuse, uncomplicated; K21.9 Gastro-esophageal reflux disease without esophagitis; I50.9 Heart failure, unspecified; K31.84 Gastroparesis; K44.9 Diaphragmatic hernia without obstruction or gangrene; Z20.822 Contact with and (suspected) exposure to COVID-19; Z23 Encounter for immunization; Z88.8 Allergy status to other drugs, medicaments and biological substances; Z90.49 Acquired absence of other specified parts of digestive tract; Z86.718 Personal history of other venous thrombosis and embolism; Z79.899 Other long term (current) drug therapy; Z76.5 Malingerer [conscious simulation]
CPT/HCPCS: 10100; 10195; 27000; 62110; 62900; 70005

== ENCOUNTER → 2021-02-09 | Outpatient (CLI) | payer OTHER ==
[~2021-02-09] MED LIST changes: +ACETAMINOPHEN325 M1 PO; +ACIDOPHILUS1 EAC4 PO; +CIPRO500 M1 PO; +HYOSCYAMINE0.125 M1 PO; +PAMELOR25 MG PO; +VANCOMYCIN HCL125 MG PO
== END ==
LOC: SJCVC 10:03
PROVIDERS: ATTEND Internal Medicine
DX: I71.00 Dissection of unspecified site of aorta (principal); I95.1 Orthostatic hypotension; E78.5 Hyperlipidemia, unspecified; Z82.49 Family history of ischemic heart disease and other diseases of the circulatory system; Z72.89 Other problems related to lifestyle; Z88.8 Allergy status to other drugs, medicaments and biological substances; Z79.899 Other long term (current) drug therapy

== ENCOUNTER → 2021-03-02 | Outpatient (CLI) | payer OTHER | LOC: RAD 11:46 | PROVIDERS: ATTEND Family Medicine | DX: M25.512 Pain in left shoulder (principal) ==

== ENCOUNTER → 2021-03-09 | Outpatient (CLI) | payer OTHER | LOC: ULTRA 09:18 | PROVIDERS: ATTEND Family Medicine | DX: D25.9 Leiomyoma of uterus, unspecified (principal); N93.8 Other specified abnormal uterine and vaginal bleeding ==

== ENCOUNTER → 2021-03-27 | Day surgery (SDC) | payer OTHER ==
[~2021-03-27] VITALS: Ht 175.3 cm; Wt 104.3 kg
[2021-03-27 09:00] VITALS: BP 109/51
[2021-03-27 14:49] VITALS: BP 109/51
--- NOTE | 2021-03-28 11:51 | O ---
[facility] [address] [place] [address] OPERATIVE REPORT Name: MARIE ROGERS Room #: REG [facility] M..#: [id number] Admission: 03/27/21 Attend Phys: Car Harvey MD Discharge: Date of : 84 Report #: [id number] THIS REPORT FOR: cc: Marizol Varela MD, Nora P. MD McCabe,Car Jasso MD ~ DATE OF SERVICE: 03/27/2021 SERVICE: Orthopedics. FACILITY: [place]. SURGEON: Car Harvey MD TAX ACCOUNTING ASSISTANT: Crystal oCnroy NP INDICATIONS FOR TAX ACCOUNTING ASSISTANT: Extremity positioning, suture management, arthroscope management, assistance with reconstruction as well as graft preparation. PREOPERATIVE DIAGNOSES: 1. Left hip pain. 2. Left hip acetabular tear. 3. 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 4. Status post previous left hip labral repair. 5. Status post fall. 6. Obesity. POSTOPERATIVE DIAGNOSES: 1. Left hip pain. 2. Left hip acetabular tear. 3. 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 4. Status post previous left hip labral repair. 5. Status post fall. 6. Left hip focal Cam deformity. 7. Obesity. PROCEDURES: 1. Left hip arthroscopic allograft labral reconstruction. 2. Left hip focal Cam osteoplasty. 3. Left hip extensive arthroscopic debridement with rim acetabuloplasty. COMPLICATIONS: None. DRAINS: None. [facility] [place] [address] OPERATIVE REPORT Name: MARIE ROGERS Room #: REG [facility]..#: [id number] Admission: 03/27/21 Attend Phys: Car Harvey MD Discharge: Date of : 84 Report #: [id number] SPECIMENS: None. ANESTHESIA: General with regional. FINDINGS: 1. Allograft labral reconstruction with Mckenney NanoTack suture anchor x 2 and CinchLock suture anchor x 4 with posterior tibialis allograft. 2. Capsular repair with a #2 Vicryl x 3. 3. Rim acetabuloplasty performed with fluoroscopic assistance. 4. Overall, healthy-appearing articular cartilage of the acetabulum and the femoral head with minimal chondroplasty required. 5. Focal Cam recurrence at the head and neck junction, treated with Cam osteoplasty. HISTORY: The patient is a 40-year-old female who is status post left hip arthroscopy with impingement treatment and labral repair approximately 2 years ago. She had essentially complete pain relief and was doing well. Unfortunately, she suffers from a condition that resulted in periodic passing out and falling. Earlier last year, she had one such episode and fell, collapsing down on to her left hip and when she came to, she had left hip pain and this has been persistent ever since and has actually been worsening. She had conservative treatment with rest, activity modifications, physical therapy, oral medicines and intraarticular injection, all unfortunately without sustained relief. She had imaging consistent with a full-thickness labral tear near the site of previous repair and she also had x-rays that were suggestive perhaps of lateral over coverage and so she was indicated for revision surgery. Risks, benefits, alternatives and indications of surgery were discussed with her in detail. Risks include, but not limited to pain, bleeding, infection, injury to nerves or blood vessels, persistent pain despite surgical intervention, failure of any repairs or reconstructions, progression of preexisting chondral injury, stiffness, need for further surgery as well as complications related to anesthesia. Despite the risks, she wished to proceed. PROCEDURE IN DETAIL: After left lower extremity was correctly identified in the preoperative holding area as the operative extremity, the patient underwent regional nerve blocks. She was taken to the operating room, where general anesthesia was induced without complication. She was padded appropriately. During ____, while positioning, her legs were noted to slip off the side of the bed. She was caught by the nursing staff and the patient did not hit the floor. There was no evidence of injury. The patient was appropriately positioned, padded and secured. The C-arm was then used to assess the proximal femoral anatomy under dynamic fluoroscopy at this point and then the left hip was prepped and draped in standard sterile fashion. Timeout procedure was performed. [address] [address] OPERATIVE REPORT Name: KENJESSBERNADETTE CASE Room #: REG [facility] M.R.#: [id number] Admission: 03/27/21 Attend Phys: Car Harvey MD Discharge: Date of : 84 Report #: [id number] Due to the patient's increased BMI, we utilized several technique modifications to accommodate. We planned for a wider surgical field to drape out in order to maintain the sterile field. We used the PNMsoft FlowPort cannula system to allow for greater working length as well as the largest size Akilah TranSport telescoping cannula system. Standard anterolateral viewing portal was established followed by anteromedial working portal. Diagnostic arthroscopy revealed significant fraying of the anterior labrum at the site of the tear. There was also some scarring that had occurred between the labrum and the capsule as well as the labrum and the anterior femur. The capsule tissue itself was quite healthy, and the capsule was able to be preserved during the procedure. I assessed the labrum and it was certainly not of appropriate tissue quality for revision repair and we proceeded with the preoperative plan for reconstruction. The biter and the shaver were used to resect the hamilton labrum from a healthy margin medially to a healthy margin laterally and then the bur was used to perform a rim acetabuloplasty to reduce the center edge angle to more appropriate coverage. The articular cartilage was softened at the chondrolabral junction, but once the rim resection was completed, the cartilage was healthy in this area. There was some fraying of the anterolateral femoral head cartilage superficially, this was treated with a limited chondroplasty. The acetabular rim preparation was completed, working around the edge laterally using fluoroscopy to confirm adequate resection of the bone. Traction was let down, hip was flexed up. I assessed the peripheral compartment. The previous Cam resection appeared adequate, although there was a focal area, where there was a prominence right at the head and neck junction. There was some soft tissue hypertrophy as well as some focal area of bone. The bur was used to resect this bone, completing a focal Cam osteoplasty. Without the labral reconstruction in place, we could visualize the articulation of the femoral head with the acetabulum and the femoral head seated well within the acetabulum and there was no evidence of any persistent impingement. Traction was then reapplied and we proceeded with the labral refixation. The Mckenney NanoTack anchors were placed at the corners near the hamilton labrum and then the pilot boat captain holes for the CinchLock anchors were placed through the cannulas in preparation for the reconstruction. The anterior anchor was utilized first with the suture placed through the hamilton labrum and then this suture was used to pull the graft into the hip. We used a pull-through technique, which required placement of a fourth portal. The third portal was a distal anterolateral accessory portal that was utilized for placement of the CinchLock anchors, whereas the fourth was a posterolateral portal that allowed for the graft pull-through technique to be performed. The graft was therefore, utilizing this portal, passed through the hip and out the lateral aspect of the hip and then the sutures were tied around the graft anteriorly and then we proceeded with securing the CinchLock anchors, working anteriorly to laterally. The scope was placed anteriorly and then we turned attention towards the [facility] [address] [place] [address] OPERATIVE REPORT Name: KENJESSBERNADETTE CASE [facility]#: [id number] Admission: 03/27/21 Attend Phys: Car Harvey MD Discharge: Date of : 84 Report #: [id number] posterolateral aspect of the hip. The final CinchLock was placed and then the NanoTack at the corner was passed through the hamilton chondrolabral junction and then around the hamilton labrum and then around the graft and secured accordingly. Good fixation with a healthy-appearing graft was achieved and then the remaining portion of the graft was truncated and removed. Traction was let down and then the transverse capsulotomy was closed with total of three Vicryl sutures. The instruments were removed. Portal sites were closed. Note that there was increased procedure difficulty due to the revision nature of this procedure. In addition, this was an allograft reconstruction, which required more advanced surgical technique as it was a high degree of surgical complexity and technical difficulty. Additionally, increased number of surgical implants were required compared to simple labral repair. The patient also has increased body mass index, which also makes it technically more challenging, but we were able to successfully achieve the surgical goals by utilizing different instrumentation that accomodated the increased soft tissue envelope. The instruments were removed. Portal sites were closed. Sterile dressing was applied. The patient was awakened from anesthesia and taken to recovery room in stable condition. There were no complications. All counts were reported as correct. <ELECTRONICALLY SIGNED> By: Car Harvey MD 03/28/21 1151 1619 1702 Car Harvey MD /nt
== END | disposition home or self-care (01) ==
LOC: OR 07:30
PROVIDERS: ATTEND Orthopaedic Surgery Sports Medicine
DX: M25.552 Pain in left hip (principal); S73.192A Other sprain of left hip, initial encounter; M25.852 Other specified joint disorders, left hip; M24.852 Other specific joint derangements of left hip, not elsewhere classified; F32.9 Major depressive disorder, single episode, unspecified; F41.9 Anxiety disorder, unspecified; K21.9 Gastro-esophageal reflux disease without esophagitis; E66.09 Other obesity due to excess calories; Z98.890 Other specified postprocedural states; Z79.899 Other long term (current) drug therapy; Z20.822 Contact with and (suspected) exposure to COVID-19; Z87.19 Personal history of other diseases of the digestive system; Z88.8 Allergy status to other drugs, medicaments and biological substances; X58.XXXA Exposure to other specified factors, initial encounter; Y93.89 Activity, other specified; Y92.89 Other specified places as the place of occurrence of the external cause; Y99.8 Other external cause status
CPT/HCPCS: 50010; 50101; 50386; 51538; 52304; 52313; 56524; 56527; 57092; 57103; 58273; 58274; 58548; 58557; 58558; 58559; 58561; 58563; 58564; 58608; 58638; 58639; 59024; 59133; 59170; 59171; 59172; 62110; 62900; 64039; 64043; 70005